=== PATIENT | male | born 1970 | race Two or more races ===

== ENCOUNTER 2024-03-07 01:34 | Emergency (ER) | payer MEDICAID, SELFPAY ==
[2024-03-07 01:42] VITALS: BP 164/90; PULSE 66; RESP 18; TEMP 36.8; O2SAT 98
--- NOTE | 2024-03-07 01:51 | EDNOTE_ITS ---
<Statement entered by Nhi Reina MD - 03/15/24 16:32> As co-signing physician, I was present and available for consult prn. I concur with the plan and care as documented by the midlevel provider. Lower Extremity Injury RME/HPI General Chief Complaint: Ankle/Foot Injury Stated Complaint: FOOT PAIN Time Seen by Provider: 03/07/24 01:51 Source: patient Arrival date/time: 03/07/24 01:34 53-year-old male presents emergency department complaining of left foot, bilateral elbow, and right wrist pain has been ongoing for several months. Limitations: no limitations Related Data Previous Rx's ?Medication ?Instructions ?Recorded ibuprofen 600 mg tablet 600 mg PO Q6H #30 tabs 04/17/22 acetaminophen 500 mg capsule 500 mg PO Q6H PRN pain #30 caps 03/07/24 ibuprofen 600 mg tablet 600 mg PO Q8H PRN pain #20 tabs 03/07/24 Allergies Allergy/AdvReac Type Severity Reaction Status Date / Time No Known Allergies Allergy Verified 01/28/24 01:47 Review of Systems Review of Systems Systems Reviewed: All systems reviewed, normal except as documented Constitutional Constitutional: Reports system reviewed and no additional complaints, except as documented, Denies body ache(s), Denies chills and Denies fever(s) Eyes Eyes: Reports system reviewed and no additional complaints, except as documented and Denies change in vision ENT Ears, Nose, Mouth, and Throat: Reports system reviewed and no additional complaints, except as documented, Denies disequilibrium, Denies dizziness, Denies sore throat and Denies vertigo Cardiovascular Cardiovascular: Reports system reviewed and no additional complaints, except as documented, Denies chest pain and Denies dyspnea Respiratory Respiratory: Reports system reviewed and no additional complaints, except as documented, Denies chest congestion, Denies cough and Denies dyspnea Gastrointestinal Gastrointestinal: Reports system reviewed and no additional complaints, except as documented, Denies abdominal pain, Denies nausea and Denies vomiting Musculoskeletal Musculoskeletal: Reports system reviewed and no additional complaints, except as documented, Denies abnormal gait and Reports arthralgias Integumentary/Breasts Skin/Breast: Reports system reviewed and no additional complaints, except as documented, Denies erythema, Denies rash and Denies wounds Neurologic Neurologic: Reports system reviewed and no additional complaints, except as documented, Denies abnormal gait, Denies disequilibrium, Denies dizziness and Denies vertigo Past Medical History Social History SMOKING STATUS: Never smoker ED Exam General Limitations: Present no limitations General appearance: Present alert and in no apparent distress Head Head exam: Present atraumatic Eye Eye exam: Present normal appearance, PERRL and EOMI ENT ENT exam: Present normal exam, normal oropharynx and mucous membranes moist Neck Neck exam: Present normal inspection, full ROM and trachea midline Chest Chest inspection: Present normal inspection and symmetric chest wall rise Respiratory Respiratory exam: Present normal lung sounds bilaterally Cardiovascular Cardiovascular exam: Present regular rate, normal rhythm and normal heart sounds Abdominal Exam Abdominal exam: Present soft and normal bowel sounds Extremities Exam Extremities exam: Present normal inspection and full ROM Back Exam Back exam: Present normal inspection and full ROM Neurological Exam Neurological exam: Present alert, oriented X3 and CN II-XII intact Psychiatric Psychiatric exam: Present normal affect and normal mood Skin Skin exam: Present warm, dry, intact and normal color Course Quality Measures none Orders Category Date Time Status Acetaminophen Tab [Tylenol ES Tab] Med 03/07/24 01:58 Discontinued 1,000 mg PO X1 ONE Ibuprofen Tab [Motrin Tab] Med 03/07/24 01:58 Discontinued 600 mg PO X1 ONE Ketorolac Inj [Toradol Inj] Med 03/07/24 01:55 Discontinued 30 mg IM X1 ONE Vital Signs Vital signs: Vital Signs Temperature 98.3 F 03/07/24 01:42 Pulse Rate 66 03/07/24 01:42 Respiratory Rate 18 03/07/24 01:42 Blood Pressure 164/90 H 03/07/24 01:42 Pulse Oximetry (%) 98 03/07/24 01:42 Oxygen Delivery Method Room Air 03/07/24 01:42 98% RA WNL. Extremity Injury, Lower MDM Narrative MDM Narrative:: 53-year-old male presents emergency department complaining of left foot, bilateral elbow, and right wrist pain has been ongoing for several months. Patient GCS 15 with Full Active ROM to upper and lower extremities. No edema or redness to affected extremities. Patient data External records reviewed:: [facility] previous records Clinical information provided by:: patient Social determinants that could affect healthcare access:: none Patient has the following chronic illnesses:: see chart How is presenting disease/condition affected by chronic disease/condition?: uneffected by Evaluation data The following diagnostics were reviewed and interpreted by me:: other (specify) (n/a) Lab and/or radiology exams considered but not ordered:: n/a Interpretation Summary: n/a Medications / Prescriptions Medications or Prescriptions considered but not ordered:: ordered Medication administrations:: Medication Administration History Discontinued Medications Acetaminophen (Acetaminophen 500 Mg Tablet) 1,000 mg PO X1 ONE Stop: 03/07/24 01:59 Last Admin: 03/07/24 02:05 Dose: 1,000 mg Documented By: OA Ibuprofen (Ibuprofen Tab 600 Mg Tablet) 600 mg PO X1 ONE Stop: 03/07/24 01:59 Last Admin: 03/07/24 02:06 Dose: 600 mg Documented By: OA Ketorolac Tromethamine (Ketorolac Inj 60 Mg/2 Ml Vial) 30 mg IM X1 ONE Stop: 03/07/24 01:56 Last Admin: 03/07/24 02:06 Dose: Not Given Documented By: OA Non-Admin Reason: Discontinued given Consultations Consultation(s) initiated? (list below): No Diagnosis Extremity Injury, Lower Differential Diagnosis: other (gout, arthritis) Most likely diagnosis given after review of the tests above:: arthralgia Admission Indicated Admission indicated?: not indicated Admission Request Was there a request for admission?: No Disposition Plan Disposition Plan: Discharge Discharge Attestation Discharge Attestation: The patient and all family members were given an opportunity to ask questions and understood the discharge instructions. Discharge instructions specifically effects, indications for sooner follow up or return to the emergency department, and the expected course of current diagnosis. Patient condition: Stable Discharge Plan Plan Patient Disposition: HOME (Self Care) Disposition Comment: Stable Prescriptions/Referrals Prescriptions/Med Rec: New ibuprofen 600 mg tablet 600 mg PO Q8H PRN (Reason: pain) Qty: 20 0RF acetaminophen 500 mg capsule 500 mg PO Q6H PRN (Reason: pain) Qty: 30 0RF No Action ibuprofen 600 mg tablet 600 mg PO Q6H Qty: 30 0RF Problem List Clinical Impression: Arthralgia Patient/Caregiver Discharge Instructions Discharge Activity: activity as tolerated Education Materials: ED Arthralgia Additional Instructions: Medication as prescribed for pain. Follow-up with primary care provider is required workup for gout or arthritis. Return to emergency department for any worsening symptoms or as needed. Print Language: Azeri Stand Alone Forms: [employer] Info., Patient Portal Info Letter PA/TABLE INSPECTOR Supervising Physician PA/TABLE INSPECTOR Supervising Physician: Dr. Reina
[2024-03-07] MEDS: ACETAMINOPHEN 500 MG TABLET 1000 MG PO (02:05)
[2024-03-07] MEDS: IBUPROFEN TAB 600 MG TABLET PO (02:06)
== END 2024-03-07 02:13 | disposition home or self-care (01) ==
PROVIDERS: Emergency Provider Emergency Medicine
DX: M25.531 Pain in right wrist (principal); M25.572 Pain in left ankle and joints of left foot; M25.522 Pain in left elbow; M25.521 Pain in right elbow
CPT/HCPCS: 99283; A9270